=== PATIENT | female | born 1970 | race Caucasian/White ===

== ENCOUNTER 2016-12-16 07:43 | Inpatient (IN) | payer SELFPAY ==
[~2016-12-16] VITALS: Ht 162.6 cm; Wt 79.5 kg
--- NOTE | 2016-12-16 08:11 | NUR ---
PT C/O GENERALIZED ABD PAIN X3 DAYS. DENIES N/V/D/C, DENIES PAIN WITH URINATION. PT GRIMACES WITH PALPATION TO ABD LUQ. PT IS AAOX4, RESP EVEN AND UNLABORED, RA.
--- NOTE | 2016-12-16 08:30 | NUR ---
PT GIVEN URINE SPECIMINE CUP AND INSTRCUTED TO PROVIDE URINE. PT VERBALIZES UNDERSTANDING AND STS THAT SHE IS UNABLE TO URINATE AT THIS TIME.
--- NOTE | 2016-12-16 09:00 | NUR ---
PT REQUESTING WATER. UNABLE TO COMPLY WITH PT REQUEST DUE TO PT NOT BEING SEEN YET BY DR AND DUE TO PT C/O AND PAIN.
--- NOTE | 2016-12-16 09:45 | NUR ---
DR WEIR AT BEDSIDE FOR MSE
--- NOTE | 2016-12-16 09:50 | NUR ---
PT IN STABLE CONDITION. RESP EVEN AND UNLABORED, RA. VS STABLE. NAD NOTED
--- NOTE | 2016-12-16 09:55 | NUR ---
HEAD PACKAGER AT BEDSIDE FOR BLOOD DRAW
--- NOTE | 2016-12-16 10:00 | NUR ---
PT REMINDED OF NEED TO COLLECT URINE
[2016-12-16 10:11] LABS: CALCIUM 8.5 mg/dL (8.5-10.1); CARBON DIOXIDE 27.7 mmol/L (21-32); CHLORIDE SERUM 101 mmol/L (98-107); CREATININE SERUM 0.6 mg/dL (0.6-1.0); GFR1 > 60 mL/min; GLUCOSE SERUM 109 mg/dL (74-106); POTASSIUM SERUM 3.4 mmol/L (3.5-5.1); SODIUM SERUM 138 mmol/L (136-145)
[2016-12-16 10:16] LABS: ALKALINE PHOSPHATASE 108 U/L (46-116); ALT/SGPT 14 U/L (14-59); AST/SGOT 10 U/L (15-37); LIPASE 78 IU/L (73-393)
[2016-12-16 10:17] LABS: ALBUMIN 3.1 g/dL (3.4-5.0)
--- NOTE | 2016-12-16 10:21 | NUR ---
[facility]
[2016-12-16 10:42] LABS: BASOPHIL % 0 % (0-2); RED CELL DISTRIBUTION WIDTH 20.6 % (11.5-14.5)
[2016-12-16 10:45] LABS: PLATELET COUNT 521 x10^3mcL (130-400)
[2016-12-16 10:49] LABS: ovalocyte/elliptocyte 1+
[2016-12-16 10:50] LABS: acanthocyte (spur cell) 1+; rbc morphology (normal/abnorm) ABNORMAL (NORMAL)
--- NOTE | 2016-12-16 10:55 | NUR ---
PT REMINDED OF NEED TO COLLECT URINE. PT STS THAT SHE IS STILL UNABLE TO URINATE
--- NOTE | 2016-12-16 11:19 | NUR ---
PT TAKEN FOR ULTRASOUND VIA WHEELCHAIR
--- NOTE | 2016-12-16 11:55 | NUR ---
PT BACK FROM ROOM AND STS THAT SHE IS STILL UNABLE TO URINATE. VS STABLE. NAD NOTED. RESP EVEN AND UNLABORED, RA
--- NOTE | 2016-12-16 12:00 | NUR ---
ZOSYN ABX INITIATED PER ORDER. DR CARMELLA GUILLORY'D ADMINISTRATION WITHOUT OBTAINING BLOOD CULTURES
--- NOTE | 2016-12-16 13:40 | NUR ---
PT IN RESTROOM ATTEMPTING TO PROVIDE URINE SAMPLE
--- NOTE | 2016-12-16 13:46 | NUR ---
PT BACK IN ROOM. PT CONTINUES TO STS THAT SHE IS UNABLE TO PROVIDE URINE. PT REFUSING OFFER TO OBTAIN URINE THROUGH STRAIGHT CATH
--- NOTE | 2016-12-16 13:47 | NUR ---
CALLED MINNIE TO GIVE REPORT. REQUESTING TO CALL BACK AFTER A DC
--- NOTE | 2016-12-16 14:15 | NUR ---
CALLED MINNIE CODY TO GIVE REPORT, NO ANSWER
--- NOTE | 2016-12-16 14:17 | NUR ---
CALLED [facility]. PER U/S EZ: MINNIE DOING DC OF PT
--- NOTE | 2016-12-16 14:33 | NUR ---
REPORT GIVEN TO DANETTE CODY FOR [facility]NIE CODY IN [facility] FOR CONTINUITY OF CARE
[2016-12-16 14:45] LABS: CHOLESTEROL/HDL RATIO 2.4
[2016-12-16 14:48] LABS: T3 TOTAL 0.71 ng/mL
[2016-12-16 14:54] LABS: FREE T4 1.02 ng/dL (0.76-1.46); T4(THYROXINE) 6.2 ug/dL (4.7-13.3)
--- NOTE | 2016-12-16 14:55 | NUR ---
RECEIVED PT FROM ED VIA [facility], CAME IN DUE TO ABDOMINAL PAIN X3 DAYS. AAOX4. DENIES HEADACHE/DIZZINESS. NO SOB NOTED. DENIES CHEST PAIN/PRESSURE, LM=[id number]. C/O MILD ABDOMINAL PAIN. DENIES NAUSEA/VOMITING. PALE. AMBULATORY. DR. SCHUSTER AT BEDSIDE. SIDE RAILS UPX2. CALL LIGHT ON REACH. ENDORSED
[2016-12-16 15:15] VITALS: BP 121/59
--- NOTE | 2016-12-16 15:17 | NUR ---
Pt. AAOX4. RESPIRATIONS EVEN AND UNLABORED. CONTINUE TO REPORT ABD PAIN. DR. DO AT BEDSIDE AND EXPLAINED SURGICAL PROCEDURE TO Pt. AND WITNESSED Pt. SIGN CONSENT. Pt. WENT DOWN TO SURGERY.
--- NOTE | 2016-12-16 15:20 | NUR ---
SPOKE WITH DR. MORROW NOTIFIED THAT IV BOLUS WAS NOT STARTED BECAUSE Pt. HAD TO GO TO SURGERY. PER DR. MORROW NOTIFY [facility] STAFF TO GIVE IV BOLUS. SPOKE WITH DANILO CODY FROM [facility] AND WAS NOTIFIED.
[2016-12-16 15:26] VITALS: Ht 162.6 cm; Wt 79.5 kg
[2016-12-16 16:31] LABS: RED BLOOD CELLS 4.57 M/mm3 (4.10-5.10)
[2016-12-16 16:48] LABS: TOTAL IRON BINDING CAPACITY 326 ug/dL (250-450)
[2016-12-16 16:49] LABS: IRON 15 ug/dL (50-170)
--- NOTE | 2016-12-16 18:13 | NUR ---
REPORT RECEIVED FROM DANILO CODY FROM [facility] AND REPORTED THAT 1 L BOLUS GIVEN IN SURGERY. Pt. WITH RUE SWELLING D/T IV AT RIGHT AC INFILTRATED.
--- NOTE | 2016-12-16 18:30 | NUR ---
Pt. RETURNED FROM SURGERY. Pt. REMAINS AAOX4. RESPIRATIONS EVEN AND UNLABORED. DENIES PAIN/DISCOMFORT AT THIS TIME. NO DISTRESS NOTED. TELE IN PLACE. RESUMED IVF NS AT IV AT LEFT HAND PATENT AND INTACT. RUE WITH SWELLING STILL NOTED. DENIES PAIN/DISCOMFORT AT RUE. ABD X 4 SURGICAL INCISION SITE WITH DERMABOND CDI. Pt. INSTRUCTED TO USE IS AND PLACED Pt. ON SCD. BED LOW/LOCKED. CALL LIGHT IN REACH.
[2016-12-16 18:33] VITALS: BP 123/65
--- NOTE | 2016-12-16 19:59 | NUR ---
RECEIVED PT FROM PREVIOUS SHIFT NURSE. PT AOX4. TELE #15, SR, [id number]. DENIES CP/PRESSURE. PULSES GOOD, NO EDEMA NOTED. LUNG SOUNDS CLEAR, ON RA. DENIES SOB/ DIFFICULTY BREATHING. BOWEL SOUNDS ACTIVE. VOIDS FREELY. AMBULATORY WITHOUT ASSISTANCE. 3 SURGICAL INCISIONS WITH DERMA SINGER, CDI. IV IN LFA, INTACT AND PATENT. BED IN LOWEST POSITION. CALL LIGHT WITHIN REACH. WILL CONTINUE TO MONITOR.
[2016-12-16 21:16] VITALS: BP 93/51
[2016-12-17 00:32] VITALS: BP 93/51
--- NOTE | 2016-12-17 03:15 | NUR ---
PT RESTING IN BED. RR EVEN AND UNLABORED. NO ACUTE DISTRESS NOTED. BED IN LOWEST POSITION. CALL LIGHT WITHIN REACH. WILL CONTINUE TO MONITOR.
[2016-12-17 05:23] LABS: UA SPECIFIC GRAVITY 1.025 (1.005-1.035); microscopic required? YES; urine erythrocyte 1+ (NEGATIVE)
[2016-12-17 05:57] VITALS: BP 104/56
[2016-12-17 06:24] LABS: AMPHETAMINE QUAL UR NONE DETECTED (NEG <=1000)
[2016-12-17 06:33] LABS: PLATELET COUNT 366 x10^3mcL (130-400)
[2016-12-17 06:50] LABS: BASOPHIL % 0 % (0-2); RED CELL DISTRIBUTION WIDTH 20.7 % (11.5-14.5)
[2016-12-17 07:29] LABS: CALCIUM 8.3 mg/dL (8.5-10.1); CARBON DIOXIDE 24.1 mmol/L (21-32); CHLORIDE SERUM 105 mmol/L (98-107); CREATININE SERUM 0.6 mg/dL (0.6-1.0); GFR1 > 60 mL/min; GLUCOSE SERUM 131 mg/dL (74-106); MAGNESIUM 1.8 mg/dL (1.8-2.4); PHOSPHOROUS 3.7 mg/dL (2.5-4.9); POTASSIUM SERUM 4.1 mmol/L (3.5-5.1); SODIUM SERUM 137 mmol/L (136-145)
--- NOTE | 2016-12-17 07:45 | NUR ---
PATIENT AOX4, DENIES HEADACHE. TELE 15, DENIES CP. LUNGS CTA, NO RESP DISTRESS ON RA, INCENTIVE SPIROMETER WITHIN REACH AND REINFORCED. PERIPHERAL PULSES PALPABLE, NO EDEMA. BOWEL SOUNDS HYPOACTIVE, DENIES HAVING BM OR PASSING GAS YET. ADMITS TO VOIDING FREELY THIS MORNING. ABD WITH 3 LAP SITES WITH DERMABOND CDI, SITE WNL. STATES PAIN TO ABD 02/04, WILL MEDICATE PER EMAR. DENIES N/V. TOLERATING BREAKFAST MEAL FULL LIQUID WELL. IV ACCESS TO LFA HEPLOCKED PER DR ORDER. CALL LIGHT WITHIN REACH.
[2016-12-17 08:48] LABS: rbc morphology (normal/abnorm) ABNORMAL (NORMAL)
--- NOTE | 2016-12-17 09:00 | NUR ---
DUE MEDICATION GIVEN, NORCO GIVEN FOR PAIN, WILL CONT TO MONITOR.
[2016-12-17 09:30] VITALS: BP 117/59
--- NOTE | 2016-12-17 12:10 | NUR ---
STATES NORCO STILL EFFECTIVE, DENIES HAVING BM YET OR PASSING GAS. DENIES DISCOMFORT/DIZZINESS. INCENTIVE SPIROMETER REINFORCED AND ENCOURAGED PATIENT TO AMBULATE IN HALLWAY TO HELP STIMULATE GI. PATIENT VERBALIZED UNDERSTANDING.
[2016-12-17 13:16] LABS: BASOPHIL % 0 % (0-2); PLATELET COUNT 489 x10^3mcL (130-400); RED CELL DISTRIBUTION WIDTH 20.8 % (11.5-14.5)
[2016-12-17 13:25] LABS: rbc morphology (normal/abnorm) ABNORMAL (NORMAL)
[2016-12-17 13:26] LABS: ovalocyte/elliptocyte 1+
--- NOTE | 2016-12-17 14:30 | NUR ---
PATIENT AMBULATING IN HALLWAY, STEADY GAIT. DENIES DIZZINESS.
[2016-12-17 18:03] VITALS: BP 101/54
--- NOTE | 2016-12-17 18:35 | NUR ---
PATIENT STATES NOW BURPING AND PASSING GAS. NO BM YET. NO COMPLAINS OF PAIN AT THIS TIME. BOWEL SOUNDS ACTIVE. 3 LAP SITES TO ABD WNL. IV SITE WNL. NO OTHER SIGNFICANT CHANGE IN CONDITION. WILL CONT TO MONITOR AND ENDORSE TO WINSOME CODY.
--- NOTE | 2016-12-17 18:45 | NUR ---
DR DO SAW PATIENT WITH HARNESS BRUSHER. INFORMED PATIENT POSTOP STATUS AND TO BE SEEN BY SPANISH TUTOR REGARDING TUBE CYST. WILL F/U WITH PATIENT AFTER DISCHARGE. PATIENT VERBALIZED UNDERSTANDING.
--- NOTE | 2016-12-17 19:35 | NUR ---
RECEIVED Pt AAOX3 CALM AND COOPERATIVE WITH CARE. DENIES ANY CHEST PAIN. LUNG SOUNDS ARE CTA BILATERALLY. Pt ON ROOM AIR TOLERATING WELL. ABDOMINAL SOUNDS ACTIVE X4 QUADS. DENIES ANY ABD DISCOMFORT AT THIS TIME. X1 FORMED BOWEL MOVEMENT THIS MORNING. REPORTS BURPING AND PASSING GAS. TOLERATES DIET WELL. NO N/V/D. VOIDS FREELY. X3 SURGICAL INCISIONS WITH DERMABOND CDI. IV TO LFA PATENT AND INTACT. MOVES ALL EXTREMITIES, NO EDEMA NOTED. SCD'S IN PLACE. RE-ORIENTED TO ROOM AND CALL LIGHT SYSTEM, WILL CONTIUE TO MONITOR.
--- NOTE | 2016-12-17 20:00 | NUR ---
I HAVE REVIEWED THE DATA COLLECTION BY [employer] (NAME): ADAM BELL ENTERED ON (DATE/TIME): 12/17/161999 I CONCUR WITH THE DATA AND ANY EXCEPTIONS OR COMMENTS ARE LISTED BELOW:
[2016-12-17 21:21] VITALS: BP 102/38
--- NOTE | 2016-12-17 23:54 | NUR ---
MEDICATED WITH NORCO FOR ABD PAIN/SURGICAL SITE PAIN AT 03/07. WILL CONTINUE TO MONITOR.
[2016-12-18] VITALS (9 sets, daily range): BP systolic 91–115; BP diastolic 32–63
--- NOTE | 2016-12-18 01:43 | NUR ---
Pt RESTING COMFORTABLY. CALL LIGHT WITHIN REACH. WILL CONTINUE TO MONITOR.
--- NOTE | 2016-12-18 05:17 | NUR ---
NO SIGNIFICANT CHANGES NOTED OVER NIGHT. MEDICATED X1 FOR ABD PAIN. REPORTS PASSING GAS AND BURPING. VOIDS FREELY. WILL CONTINUE TO MONITOR.
[2016-12-18 06:42] LABS: CALCIUM 8.4 mg/dL (8.5-10.1); CARBON DIOXIDE 26.9 mmol/L (21-32); CHLORIDE SERUM 104 mmol/L (98-107); CREATININE SERUM 0.6 mg/dL (0.6-1.0); GFR1 > 60 mL/min; GLUCOSE SERUM 109 mg/dL (74-106); MAGNESIUM 1.9 mg/dL (1.8-2.4); PHOSPHOROUS 3.4 mg/dL (2.5-4.9); POTASSIUM SERUM 3.5 mmol/L (3.5-5.1); SODIUM SERUM 139 mmol/L (136-145)
--- NOTE | 2016-12-18 07:30 | NUR ---
PT RECEIVED AAOX4, CONVERSING WELL IN FULL SENTENCES. RESP EVEN AND UNLABORED ON RA. DENIES ANY SOB OR COUGH. DENIES ANY CP OR PRESSURE. IV ON LFA INTACT, SALINE LOCKED. ABD ROUND/SOFT WITH ACTIVE BS IN ALL QUADS. LAST BM YESTERDAY PER PATIENT. DENIES ANY DIARRHEA/CONSTIPATION. VOIDING WELL WITH BRP. PT AMBULATING IN ROOM AND HALLWAYS. ABD INCISION X3 WITH DERMABOND, CDI. NO SIGNS OF BLEEDING/INFECTION NOTED. SITTING UP ON SIDE OF BED FOR BREAKFAST. CALL LIGHT WITHIN REACH.
[2016-12-18] MEDS ORDERED: FERG PO (08:14)
[2016-12-18] MEDS ORDERED: APAP/HYDROCODON1 T13 PO (08:14)
[2016-12-18] MEDS ORDERED: SIMETHICONE80 MG CH (08:15)
[2016-12-18] MEDS ORDERED: COL100 PO (08:15)
[2016-12-18] MEDS ORDERED: LAC PO (08:19)
[2016-12-18] MEDS ORDERED: VITC PO (08:20)
[2016-12-18] MEDS ORDERED: SEN PO (08:20)
[2016-12-18] MEDS ORDERED: MAC100 PO (08:21)
[2016-12-18 08:33] LABS: BASOPHIL % 0 % (0-2); PLATELET COUNT 401 x10^3mcL (130-400); RED CELL DISTRIBUTION WIDTH 20.9 % (11.5-14.5)
--- NOTE | 2016-12-18 08:35 | NUR ---
H/H 5.04/17. DR GARRISON AND DR STRINGER MADE AWARE, AWAITING NEW ORDERS. PT ASYMPTOMATIC. AAOX4. NO SIGNS OF ACUTE DISTRESS.
[2016-12-18 10:24] LABS: ovalocyte/elliptocyte 1+; rbc morphology (normal/abnorm) ABNORMAL (NORMAL)
[2016-12-18 13:39] LABS: ALKALINE PHOSPHATASE 107 U/L (46-116); ALT/SGPT 23 U/L (14-59); AST/SGOT 23 U/L (15-37); BILIRUBIN TOTAL 0.52 mg/dL (0.20-1.00); CALCIUM 8.3 mg/dL (8.5-10.1); CARBON DIOXIDE 27.6 mmol/L (21-32); CHLORIDE SERUM 106 mmol/L (98-107); CREATININE SERUM 0.7 mg/dL (0.6-1.0); GFR1 > 60 mL/min; GLUCOSE SERUM 83 mg/dL (74-106); POTASSIUM SERUM 3.2 mmol/L (3.5-5.1); SODIUM SERUM 140 mmol/L (136-145); TOTAL PROTEIN, SERUM 7.5 g/dL (6.4-8.2)
--- NOTE | 2016-12-18 13:46 | NUR ---
BLOOD BANK CALLED, PT BLOOD TYPE O POSITIVE, O NEGATIVE BLOOD AVAILABLE. OK TO GIVE O NEGATIVE BLOOD PER DR HORVATH. BLOOD BANK AWARE.
[2016-12-18 14:01] LABS: ALBUMIN 2.5 g/dL (3.4-5.0)
--- NOTE | 2016-12-18 16:33 | NUR ---
BLOOD TRANSFUSION 1 OF 2 STARTED. VERIFIED WITH GLO PATEL. PRE VS: 98.1, 99, 19, 104/60, 99% O2 SAT ON RA. DENIES ANY PAIN OR DISCOMFORT AT THIS TIME.
--- NOTE | 2016-12-18 18:33 | NUR ---
BLOOD TRANSFUSING TO RFA 20G IV WITH NO SIGNS OF INFILTRATION OR ADVERSE REACTION NOTED. PT DENIES ANY PAIN AT THIS TIME.
--- NOTE | 2016-12-18 20:25 | NUR ---
AWAKE AND VERBALLY RESPONSIVE. ABLE TO MALKE NEEDS KNOWN. 1ST UNIT PRBC COMPLETED. ATB IVPB FICEN SCHEDULED . NO BLOOD TRASFUSION REACTION NOTED . WILL CONTINUE TO MONITOR.
--- NOTE | 2016-12-18 21:15 | NUR ---
2ND UNIT PRBC STARTED AFTER VERIFICATION BY ANOTHER RN. VITAL SIGNS TAKE AND REMAINS STABLE. DENIES ANY PAIN/DISCOMFORT AT THIS TIME.
[2016-12-19 00:30] VITALS: BP 101/61
--- NOTE | 2016-12-19 00:30 | NUR ---
2ND UNIT PRBC COMPLETED. NO S/S OF ADVERSE REACTION FROM BLOOD TRANSFUSION. VITAL SIGNS STABLE. CONTINUES ON ATB IVPB ORDERED. ORAL FLUIDS WELL TOLERATED.
[2016-12-19 05:14] VITALS: BP 102/53
--- NOTE | 2016-12-19 06:09 | NUR ---
DENEIS ANY PAIN/DISCOMFORT AT THIS TIME. NO ADVERSE REACTION NOTED FROM ATB THERAPY. ALL NEEDS ATTENDED.
[2016-12-19 06:42] LABS: CALCIUM 8.1 mg/dL (8.5-10.1); CARBON DIOXIDE 25.8 mmol/L (21-32); CHLORIDE SERUM 103 mmol/L (98-107); CREATININE SERUM 0.7 mg/dL (0.6-1.0); GFR1 > 60 mL/min; GLUCOSE SERUM 94 mg/dL (74-106); MAGNESIUM 1.7 mg/dL (1.8-2.4); PHOSPHOROUS 3.1 mg/dL (2.5-4.9); SODIUM SERUM 138 mmol/L (136-145)
[2016-12-19 06:51] LABS: BASOPHIL % 0.2 % (0-2); PLATELET COUNT 368 x10^3mcL (130-400)
[2016-12-19 06:52] LABS: RED CELL DISTRIBUTION WIDTH 24.3 % (11.5-14.5)
[2016-12-19 06:53] LABS: rbc morphology (normal/abnorm) ABNORMAL (NORMAL)
--- NOTE | 2016-12-19 07:50 | NUR ---
PT IS A/O X 4. PT HAS CAP REFILL < 3 WITH PULSES STRONG AND PALABLE. LUNG SOUNDS CLEAR. PT HAS HYPERACTIVE BOWEL SOUNDS. PT ABLE TO AMBULATE TO THE RESTROOM AND VOIDS ON HER OWN. PT REPORTS NO PAIN AT THIS TIME. CALL LIGHT PLACED IN REACH. WILL CONTINUE TO MONITOR PT AND FOLLOW PLAN OF CARE. S/P LAP APPY 12/16. ABDOMINAL INCISIONAL AREA CLEAN AND DRY. PASSING FLATUS AND TOLERATING BREAKFAST WELL. NO N/V NOTED.
--- NOTE | 2016-12-19 08:15 | NUR ---
DR. STRINGER MADE ROUNDS WITH OTHER MEDICAL STAFF. UPDATED PATIENT PLAN OF CARE.
[2016-12-19 10:00] VITALS: BP 110/56
[2016-12-19] MEDS ORDERED: APAP/HYDROCODON1 T13 PO (10:21)
[2016-12-19] MEDS ORDERED: SIMETHICONE80 MG CH (10:21)
[2016-12-19] MEDS ORDERED: MAC100 PO (10:21)
[2016-12-19] MEDS ORDERED: MOT800 PO (10:21)
[2016-12-19] MEDS ORDERED: COL100 PO (10:21)
[2016-12-19] MEDS ORDERED: SEN PO (10:21)
[2016-12-19] MEDS ORDERED: FERG PO (10:21)
[2016-12-19] MEDS ORDERED: VITC PO (10:21)
[2016-12-19] MEDS ORDERED: LAC PO (10:21)
[2016-12-19 13:50] VITALS: BP 110/56
--- NOTE | 2016-12-19 14:30 | NUR ---
PT. WENT HOME W/ STABLE CONDITION AMBULATORY ACC. W/ HER . DISCHARGED INSTRUCTIONS AND PRESCRIPTION GIVEN AND DISCUSSED TO PT. AND VERBALIZED UNDERSTANDING OF INSTRUCTIONS GIVEN NO ACUTE DISTRESS NOTED.
== END 2016-12-19 14:30 | disposition home or self-care (01) | DRG 341 ==
LOC: ED 07:43 → DU 13:26 → MU 13:26 → DU 14:45 → MU 12-17 09:23
PROVIDERS: Emergency Medicine; Family Medicine; Surgery; ADMIT Family Medicine
PROC: 0DTJ4ZZ Resection of Appendix, Percutaneous Endoscopic Approach (ICD-10-PCS; principal; 2016-12-16 11:45)
PROC: 30233N1 Transfusion of Nonautologous Red Blood Cells into Peripheral Vein, Percutaneous Approach (ICD-10-PCS; 2016-12-18)
DX: K35.80 Unspecified acute appendicitis (principal); N17.0 Acute kidney failure with tubular necrosis; E44.0 Moderate protein-calorie malnutrition; N70.11 Chronic salpingitis; K59.09 Other constipation; E87.6 Hypokalemia; D50.9 Iron deficiency anemia, unspecified; Z53.29 Procedure and treatment not carried out because of patient's decision for other reasons; N83.202 Unspecified ovarian cyst, left side; N83.201 Unspecified ovarian cyst, right side; Z68.30 Body mass index [BMI] 30.0-30.9, adult
CPT/HCPCS: 83880; 84439; J1885; J2250; J2270; J2543; J3010; J3490; J7030; J7040; P9016; Q0092; Q0163